=== PATIENT | female | born 1995 | race Caucasian/White ===

== ENCOUNTER 2019-08-24 15:47 | Inpatient (IN) | payer SELFPAY ==
[2019-08-24] MEDS ORDERED: Methylergonovine 0.2 MG/1 ML Amp IM PRN (16:17)
[2019-08-24] MEDS ORDERED: Nalbuphine 10 MG/1 ML Vial IVPUSH PRN (16:17)
[2019-08-24] MEDS ORDERED: Sodium Chloride 0.9% 10 ML SDV IV PRN (16:17)
[2019-08-24] MEDS ORDERED: Butorphanol 1 MG/ML SDV IVPUSH PRN (16:17)
[2019-08-24] MEDS ORDERED: Tranexamic Acid 1,000 MG in Sodium Chloride 0.9% 100 ML IV PRN (16:17)
[2019-08-24] MEDS ORDERED: Sodium Chloride 0.9% 2.5 ML Syringe FLUSH PRN (16:17)
[2019-08-24] MEDS ORDERED: Carboprost Tromethamine 250 MCG/1 ML Amp IM PRN (16:17)
[2019-08-24] MEDS ORDERED: Lidocaine 1% 50 ML MDV INJECT PRN (16:17)
[2019-08-24] MEDS ORDERED: Sodium Chloride 0.9% 10 ML Syringe FLUSH PRN (16:17)
[2019-08-24] MEDS ORDERED: Water For Irrigation,Sterile 1,000 ML Container IRR PRN (16:17)
[2019-08-24] MEDS ORDERED: Misoprostol 200 MCG Tab PO PRN (16:17)
[2019-08-24] MEDS ORDERED: Terbutaline 1 MG/ML SDV SUBCUT PRN (16:19)
[2019-08-24] MEDS ORDERED: Misoprostol 25 MCG (1/4 of 100 MCG) Tab VAG PRN ×2 (16:19)
[2019-08-24] MEDS ORDERED: Oxytocin/0.9 % Sodium Chloride 30 UNIT/500 ML BAG IV SCH ×2 (16:30)
[2019-08-24] MEDS ORDERED: Oxytocin/0.9 % Sodium Chloride 30 UNIT/500 ML BAG ONE (17:29)
[2019-08-24] MEDS: Lactated Ringers 1,000 ML IV SCH ×2 (17:37→21:49)
[2019-08-24] MEDS ORDERED: Bupivicaine/fentaNYL/NS 250 ML ONE (21:07)
--- NOTE | 2019-08-24 21:31 | PCM.PREANE ---
Preanesthetic Assessment - Anesthesia/Transfusion/Family Hx Anesthesia History: No Prior Anesthesia Family History of Anesthesia Reaction: No Transfusion History: No Prior Transfusion(s) - Review of Systems General: No Symptoms Pulmonary: No Symptoms Cardiovascular: No Symptoms Gastrointestinal: No Symptoms Neurological: No Symptoms Other: Reports: None - Physical Assessment NPO Status Date: 08/24/19 NPO Status Time: 18:00 (tator tots) Height: 5 ft 5 in Weight: 83.915 kg ASA Class: 2 Mental Status: Alert & Oriented x3 Airway Class: Mallampati = 2 Dentition: Reports: Normal Dentition Thyro-Mental Finger Breadths: 3 ROM/Head Extension: Full Lungs: Clear to Auscultation, Normal Respiratory Effort - Lab Values: Laboratory Last Values WBC 11.27 K/uL (4.0-11.0) H 08/24/19 16:39 RBC 4.34 M/uL (4.30-5.90) 08/24/19 16:39 Hgb 12.0 g/dL (12.0-16.0) 08/24/19 16:39 Hct 37.1 % (36.0-46.0) 08/24/19 16:39 MCV 85.5 fL (80.0-98.0) 08/24/19 16:39 MCH 27.6 pg (27.0-32.0) 08/24/19 16:39 MCHC 32.3 g/dL (31.0-37.0) 08/24/19 16:39 RDW Std Deviation 45.7 fl (28.0-62.0) 08/24/19 16:39 RDW Coeff of Kenny 15 % (11.0-15.0) 08/24/19 16:39 Plt Count 254 K/uL (150-400) 08/24/19 16:39 MPV 13.30 fL (7.40-12.00) H 08/24/19 16:39 Nucleated RBC % 0.0 /100WBC 08/24/19 16:39 Nucleated RBCs # 0 K/uL 08/24/19 16:39 Membrane Rupture POSITIVE 08/24/19 15:40 Blood Type O POSITIVE 08/24/19 16:39 Antibody Screen NEGATIVE 08/24/19 16:39 - Allergies Allergies/Adverse Reactions: Allergies Allergy/AdvReac Type Severity Reaction Status Date / Time No Known Allergies Allergy Verified 08/24/19 15:46 - Acknowledgements Anesthesia Type Planned: Epidural Pt an Appropriate Candidate for the Planned Anesthesia: Yes Alternatives and Risks of Anesthesia Discussed w Pt/Guardian: Yes Pt/Guardian Understands and Agrees with Anesthesia Plan: Yes Additional Comments: at 40 1/7 weeks. Admitted in active labor with SROM. Dilated to 3 cm. PreAnesthesia Questionnaire - Past Health History Medical/Surgical History: Denies Medical/Surgical History [employer] History: Reports: - SUBSTANCE USE Smoking Status *Q: Never Smoker Tobacco Use Within Last Twelve Months: Cigarettes Second Hand Smoke Exposure: No Recreational Drug Use History: No - CURRENT (IN HOUSE) MEDS Current Meds: Current Medications Butorphanol Tartrate (Stadol) 1 mg IVPUSH Q1H PRN PRN Reason: Pain Carboprost Tromethamine (Hemabate Ds) 250 mcg IM ASDIRECTED PRN PRN Reason: Post Hemorrhage Lactated Ringer's (Ringers, Lactated) 1,000 mls @ 150 mls/hr IV ASDIRECTED MORENO Last Admin: 08/24/19 17:37 Dose: 150 mls/hr Oxytocin/Sodium Chloride (Oxytocin 30 Unit/500 Ml-Ns) 30 unit in 500 mls @ 500 mls/hr IV TITRATE [facility] Tranexamic Acid 1,000 mg/ (Sodium Chloride) 110 mls @ 660 mls/hr IV ONETIME PRN PRN Reason: Bleeding Oxytocin/Sodium Chloride (Oxytocin 30 Unit/500 Ml-Ns) 30 unit in 500 mls @ 2 mls/hr IV TITRATE MORENO; Protocol Last Titration: 08/24/19 20:26 Dose: 12 munits/min, 12 mls/hr Lidocaine HCl (Xylocaine 1%) 50 ml INJECT ONETIME PRN PRN Reason: Laceration repair Methylergonovine Maleate (Methergine) 0.2 mg IM ASDIRECTED PRN PRN Reason: Post Hemorrhage Misoprostol (Cytotec) 200 mcg PO ONETIME PRN PRN Reason: Post Hemorrhage Misoprostol (Cytotec) 25 mcg VAG ONETIME PRN PRN Reason: Cervical Ripening Misoprostol (Cytotec) 25 mcg VAG Q4H PRN PRN Reason: Cervical Ripening Nalbuphine HCl (Nubain) 10 mg IVPUSH Q1H PRN PRN Reason: Pain (severe 7-10) Sodium Chloride (Saline Flush) 10 ml FLUSH ASDIRECTED PRN PRN Reason: Keep Vein Open Sodium Chloride (Saline Flush) 2.5 ml FLUSH ASDIRECTED PRN PRN Reason: Keep Vein Open Sodium Chloride (Normal Saline) 10 ml IV ASDIRECTED PRN PRN Reason: IV Use Sterile Water (Sterile Water For Irrigation) 1,000 ml IRR ASDIRECTED PRN PRN Reason: delivery Terbutaline Sulfate (Brethine) 0.25 mg SUBCUT ASDIRECTED PRN PRN Reason: Tacysystole Discontinued Medications Oxytocin/Sodium Chloride (Oxytocin 30 Unit/500 Ml-Ns) Confirm Administered Dose 30 unit in 500 mls @ as directed .ROUTE .STiSSimple-MED ONE Stop: 08/24/19 17:30 Fentanyl/Bupivacaine HCl (Fentanyl/Bupivacaine/Ns 2 Mcg-0.125% 250 Ml) Confirm Administered Dose 250 mls @ as directed .ROUTE .STiSSimple-MED ONE Stop: 08/24/19 21:08
[2019-08-25] MEDS ORDERED: Benzocaine/Menthol 20%-0.5% Spray 78 GM Cannister TOP PRN (00:34)
[2019-08-25] MEDS ORDERED: Acetaminophen 500 MG Tab PO PRN ×2 (00:34)
[2019-08-25] MEDS ORDERED: Docusate Sodium 100 MG Cap PO PRN (00:34)
[2019-08-25] MEDS ORDERED: Ibuprofen 400 MG Tab PO PRN (00:34)
[2019-08-25] MEDS ORDERED: Lanolin 100% Cream 7 GM Tube TOP PRN (00:34)
[2019-08-25] MEDS ORDERED: Witch Hazel Medicated Pads 40/Jar TOP PRN (00:34)
[2019-08-25] MEDS ORDERED: Bisacodyl 10 MG Supp RECTAL PRN (00:34)
[2019-08-25] MEDS ORDERED: oxyCODONE 5 MG Tab PO PRN (00:34)
[2019-08-25] MEDS ORDERED: Ampicillin/Sulbactam Na 3 GM in Sodium Chloride 0.9% 100 ML IV ONE (00:42)
--- NOTE | 2019-08-25 00:42 | PCM.DEL ---
L & D Note - General Info Date of Service: 08/25/19 Mother's Due Date: 08/23/19 - Delivery Note Labor: Augmented by Oxytocin Delivery Outcome: Livebirth Infant Delivery Method: Spontaneous Vaginal Delivery-Single Presentation: Left Occiput Anterior (MEGHA) Nuchal Cord: None Anesthesia Type: Epidural Episiotomy Type: None Laceration: Labial Placenta: Intact Cord: 3 Vessels Estimated Blood Loss: 300 Resuscitation Needed: No Score 1 min: 8 Score 5 min: 9 Delivery Comments (Free Text/Narrative):: Live female delivered at 1155pm , 8/9 weight 2840g - General Info Date of Service: 08/25/19 - Patient Data Weight - Most Recent: 83.915 kg Lab Results Last 24 Hours: Laboratory Results - last 24 hr 08/24/19 08/24/19 08/24/19 Range/Units 15:40 16:39 16:39 WBC 11.27 H (4.0-11.0) K/uL RBC 4.34 (4.30-5.90) M/uL Hgb 12.0 (12.0-16.0) g/dL Hct 37.1 (36.0-46.0) % MCV 85.5 (80.0-98.0) fL MCH 27.6 (27.0-32.0) pg MCHC 32.3 (31.0-37.0) g/dL RDW Std Deviation 45.7 (28.0-62.0) fl RDW Coeff of Kenny 15 (11.0-15.0) % Plt Count 254 (150-400) K/uL MPV 13.30 H (7.40-12.00) fL Nucleated RBC % 0.0 /100WBC Nucleated RBCs # 0 K/uL Membrane Rupture POSITIVE Blood Type O POSITIVE Antibody Screen NEGATIVE Med Orders - Current: Current Medications Acetaminophen (Tylenol Extra Strength) 500 mg PO Q4H PRN PRN Reason: Pain Acetaminophen (Tylenol Extra Strength) 1,000 mg PO Q4H PRN PRN Reason: Pain Benzocaine/Menthol (Dermoplast Pain Relief 20%-0.5% [place]) 78 gm TOP ASDIRECTED PRN PRN Reason: Perineal Comfort Measure Bisacodyl (Dulcolax) 10 mg RECTAL ONETIME PRN PRN Reason: Constipation Butorphanol Tartrate (Stadol) 1 mg IVPUSH Q1H PRN PRN Reason: Pain Carboprost Tromethamine (Hemabate Ds) 250 mcg IM ASDIRECTED PRN PRN Reason: Post Hemorrhage Docusate Sodium (Colace) 100 mg PO BID PRN PRN Reason: Constipation Emollient Ointment (Lansinoh Hpa) 0 gm TOP ASDIRECTED PRN PRN Reason: Sore Nipples Lactated Ringer's (Ringers, Lactated) 1,000 mls @ 150 mls/hr IV ASDIRECTED MORENO Last Admin: 08/24/19 21:49 Dose: 150 mls/hr Oxytocin/Sodium Chloride (Oxytocin 30 Unit/500 Ml-Ns) 30 unit in 500 mls @ 500 mls/hr IV TITRATE [facility] Tranexamic Acid 1,000 mg/ (Sodium Chloride) 110 mls @ 660 mls/hr IV ONETIME PRN PRN Reason: Bleeding Oxytocin/Sodium Chloride (Oxytocin 30 Unit/500 Ml-Ns) 30 unit in 500 mls @ 2 mls/hr IV TITRATE [facility]; Protocol Last Titration: 08/24/19 23:05 Dose: 6 munits/min, 6 mls/hr Ibuprofen (Motrin) 400 mg PO Q4H PRN PRN Reason: Pain Ibuprofen (Motrin) 800 mg PO Q6H PRN PRN Reason: Pain Lidocaine HCl (Xylocaine 1%) 50 ml INJECT ONETIME PRN PRN Reason: Laceration repair Methylergonovine Maleate (Methergine) 0.2 mg IM ASDIRECTED PRN PRN Reason: Post Hemorrhage Misoprostol (Cytotec) 200 mcg PO ONETIME PRN PRN Reason: Post Hemorrhage Misoprostol (Cytotec) 25 mcg VAG ONETIME PRN PRN Reason: Cervical Ripening Misoprostol (Cytotec) 25 mcg VAG Q4H PRN PRN Reason: Cervical Ripening Nalbuphine HCl (Nubain) 10 mg IVPUSH Q1H PRN PRN Reason: Pain (severe 7-10) Oxycodone HCl (Oxycodone) 5 mg PO Q2H PRN PRN Reason: Pain Sodium Chloride (Saline Flush) 10 ml FLUSH ASDIRECTED PRN PRN Reason: Keep Vein Open Sodium Chloride (Saline Flush) 2.5 ml FLUSH ASDIRECTED PRN PRN Reason: Keep Vein Open Sodium Chloride (Normal Saline) 10 ml IV ASDIRECTED PRN PRN Reason: IV Use Sterile Water (Sterile Water For Irrigation) 1,000 ml IRR ASDIRECTED PRN PRN Reason: delivery Terbutaline Sulfate (Brethine) 0.25 mg SUBCUT ASDIRECTED PRN PRN Reason: Tacysystole Witch Capri (Tucks) 1 pad TOP ASDIRECTED PRN PRN Reason: comfort care Discontinued Medications Oxytocin/Sodium Chloride (Oxytocin 30 Unit/500 Ml-Ns) Confirm Administered Dose 30 unit in 500 mls @ as directed .ROUTE .STK-MED ONE Stop: 08/24/19 17:30 Fentanyl/Bupivacaine HCl (Fentanyl/Bupivacaine/Ns 2 Mcg-0.125% 250 Ml) Confirm Administered Dose 250 mls @ as directed .ROUTE .STDineroMail-MED ONE Stop: 08/24/19 21:08 - Problem List & Annotations (1) Vaginal delivery SNOMED Code(s): 909397564 Code(s): O80 - ENCOUNTER FOR FULL-TERM UNCOMPLICATED DELIVERY Status: Acute Current Visit: Yes - Problem List Review Problem List Initiated/Reviewed/Updated: Yes - My Orders Last 24 Hours: My Active Orders 08/24/19 15:10 Patient Status [ADT] Routine 08/24/19 15:47 Non Stress Test [RC] PER UNIT ROUTINE Up ad Isa [RC] ASDIRECTED Vaginal Exam [RC] Click to Edit Vital Signs [RC] PER UNIT ROUTINE Resuscitation Status Routine 08/24/19 16:17 Heart Tones [RC] CONTINUOUS Notify Provider [RC] PRN Vaginal Exam [RC] PRN Butorphanol [Stadol] 1 mg IVPUSH Q1H PRN Carboprost Tromethamine [Hemabate DS] 250 mcg IM ASDIRECTED PRN Lidocaine 1% [Xylocaine 1%] 50 ml INJECT ONETIME PRN Methylergonovine [Methergine] 0.2 mg IM ASDIRECTED PRN Nalbuphine [Nubain] 10 mg IVPUSH Q1H PRN Sodium Chloride 0.9% [Normal Saline] 10 ml IV ASDIRECTED PRN Sodium Chloride 0.9% [Saline Flush] 10 ml FLUSH ASDIRECTED PRN Sodium Chloride 0.9% [Saline Flush] 2.5 ml FLUSH ASDIRECTED PRN Tranexamic Acid [Cyklokapron] 1,000 mg Sodium Chloride 0.9% [Normal Saline] 100 ml IV ONETIME Water For Irrigation,Sterile [Sterile Water for Irrigation] 1,000 ml IRR ASDIRECTED PRN miSOPROStoL [Cytotec] 200 mcg PO ONETIME PRN Peripheral IV Insertion Adult [OM.PC] Routine 08/24/19 16:19 Bedrest Bathroom Privileges [RC] ASDIRECTED Communication Order [RC] ASDIRECTED Communication Order [RC] ASDIRECTED Communication Order [RC] ASDIRECTED Notify Provider [RC] PRN Notify Provider [RC] PRN Notify Provider [RC] STAT Oxygen Therapy [RC] ASDIRECTED Vaginal Exam [RC] PRN Terbutaline [Brethine] 0.25 mg SUBCUT ASDIRECTED PRN miSOPROStoL [Cytotec] 25 mcg VAG ONETIME PRN miSOPROStoL [Cytotec] 25 mcg VAG Q4H PRN 08/24/19 16:30 Lactated Ringers [Ringers, Lactated] 1,000 ml IV ASDIRECTED Oxytocin/0.9 % Sodium Chloride [Oxytocin 30 Unit/500 ML-NS] 30 unit in 500 ml IV TITRATE Oxytocin/0.9 % Sodium Chloride [Oxytocin 30 Unit/500 ML-NS] 30 unit in 500 ml IV TITRATE Medication Administration Instruction [OM.PC] Q3H 08/24/19 16:39 RPR (SYPHILIS SERO) W/ RFLX [REF] Routine 08/25/19 00:34 Patient Status [ADT] Routine May Shower [RC] ASDIRECTED Up ad Isa [RC] ASDIRECTED Vital Signs [RC] PER UNIT ROUTINE Acetaminophen [Tylenol Extra Strength] 1,000 mg PO Q4H PRN Acetaminophen [Tylenol Extra Strength] 500 mg PO Q4H PRN Benzocaine/Menthol [Dermoplast Pain Relief 20%-0.5% Fabens] 78 gm TOP ASDIRECTED PRN Docusate Sodium [Colace] 100 mg PO BID PRN Ibuprofen [Motrin] 400 mg PO Q4H PRN Ibuprofen [Motrin] 800 mg PO Q6H PRN Lanolin [Lansinoh HPA] See Dose Instructions TOP ASDIRECTED PRN Witch Capri [Tucks] 1 pad TOP ASDIRECTED PRN bisacodyL [Dulcolax] 10 mg RECTAL ONETIME PRN oxyCODONE 5 mg PO Q2H PRN Assess Lochia [WOMSER] Per Unit Routine Assess Uterine Involution [WOMSER] Per Unit Routine Peripheral IV Discontinue [OM.PC] Routine 08/26/19 05:11 HEMOGLOBIN/HEMATOCRIT,HH [HEME] Timed
--- NOTE | 2019-08-25 02:40 | OR ---
SURGEON: SHEEBA BEVERLY DATE OF PROCEDURE:08/24/2019 PREOPERATIVE DIAGNOSES: A 24-year-old G2, P1-0-0-1, at 40 weeks 1 day with prelabor rupture of membranes. POSTOPERATIVE DIAGNOSES: A 24-year-old G2, P1-0-0-1, at 40 weeks 1 day with prelabor rupture of membranes. PROCEDURE: Normal spontaneous vaginal delivery. ESTIMATED BLOOD LOSS: 200. INTRAVENOUS FLUID: Pitocin running. ANESTHESIA: Epidural. NOTES AND FINDING: A live female delivered at 11:55 p.m. scores are 8 and 9. Weight is 2840 g. BRIEF HISTORY ABOUT THE PATIENT: She is a 24-year-old G2, P1-0-0-1, at 40 weeks 1 day, who came in complaining of rupture of membranes. AmniSure done was positive. The patient had care at [facility], last visit was in May . GBS was unknown.When she came in. She was noted to be about 3 to 4 cm dilated. She was started on Pitocin. The patient made rapid progress and became fully dilated. PROCEDURE IN DETAIL: With the patient becoming fully dilated, she was encouraged to push. She had good pushing effort. She delivered the head. Subsequently, by the anterior and posterior shoulder, the body of the infant was delivered. The infant was placed on the maternal abdomen. Delayed cord clamping was done. Cord blood gases were obtained. The placenta was delivered via controlled cord traction. The perineum was inspected. A very small bilateral labial abrasion was noted, which was hemostatic. The uterus was massaged. The cervix was noted to be intact. All instrument and pad counts were correct x2. The patient tolerated the procedure well and was left in the Labor and Delivery suite in stable condition. JUNIOR / KESHA /[id number] MTDD
--- NOTE | 2019-08-25 05:07 | PCM.POSTAN ---
POST ANESTHESIA ASSESSMENT - MENTAL STATUS Mental Status: Alert, Oriented - VITAL SIGNS Vital Signs: Last Vital Signs Temp 36.4 C 08/25/19 04:00 Pulse 59 L 08/25/19 04:00 Resp 14 08/25/19 04:00 BP 93/56 L 08/25/19 04:00 Pulse Ox 98 08/25/19 04:00 - RESPIRATORY Respiratory Status: Respiratory Rate WNL, Airway Patent, O2 Saturation Stable - CARDIOVASCULAR CV Status: Pulse Rate WNL, Blood Pressure Stable - GASTROINTESTINAL GI Status: No Symptoms - POST OP HYDRATION Hydration Status: Adequate & Stable
[2019-08-25] MEDS: Ibuprofen 800 MG Tab PO PRN ×2 (06:41→14:35)
--- NOTE | 2019-08-25 08:15 | PCM.PNPP ---
- General Info Date of Service: 08/25/19 Subjective Update: 24 P2 s/p PPD1 , patient denies ay complains She is ambulating voiding and tolerating regular diet Normal lochia Functional Status: Reports: Pain Controlled, Tolerating Diet, Ambulating, Urinating - Review of Systems General: Reports: No Symptoms HEENT: Reports: No Symptoms Pulmonary: Reports: No Symptoms Cardiovascular: Reports: No Symptoms Gastrointestinal: Reports: No Symptoms Genitourinary: Reports: No Symptoms Musculoskeletal: Reports: No Symptoms Skin: Reports: No Symptoms Neurological: Reports: No Symptoms Psychiatric: Reports: No Symptoms - General Info Date of Service: 08/25/19 - Patient Data Vital Signs - Most Recent: Last Vital Signs Temp 36.4 C 08/25/19 04:00 Pulse 59 L 08/25/19 04:00 Resp 14 08/25/19 04:00 BP 93/56 L 08/25/19 04:00 Pulse Ox 98 08/25/19 04:00 Weight - Most Recent: 83.915 kg Lab Results - Last 24 Hours: Laboratory Results - last 24 hr 08/24/19 08/24/19 08/24/19 Range/Units 15:40 16:39 16:39 WBC 11.27 H (4.0-11.0) K/uL RBC 4.34 (4.30-5.90) M/uL Hgb 12.0 (12.0-16.0) g/dL Hct 37.1 (36.0-46.0) % MCV 85.5 (80.0-98.0) fL MCH 27.6 (27.0-32.0) pg MCHC 32.3 (31.0-37.0) g/dL RDW Std Deviation 45.7 (28.0-62.0) fl RDW Coeff of Kenny 15 (11.0-15.0) % Plt Count 254 (150-400) K/uL MPV 13.30 H (7.40-12.00) fL Nucleated RBC % 0.0 /100WBC Nucleated RBCs # 0 K/uL Membrane Rupture POSITIVE Blood Type O POSITIVE Antibody Screen NEGATIVE Med Orders - Current: Current Medications Acetaminophen (Tylenol Extra Strength) 500 mg PO Q4H PRN PRN Reason: Pain Acetaminophen (Tylenol Extra Strength) 1,000 mg PO Q4H PRN PRN Reason: Pain Benzocaine/Menthol (Dermoplast Pain Relief 20%-0.5% [place]) 78 gm TOP ASDIRECTED PRN PRN Reason: Perineal Comfort Measure Bisacodyl (Dulcolax) 10 mg RECTAL ONETIME PRN PRN Reason: Constipation Butorphanol Tartrate (Stadol) 1 mg IVPUSH Q1H PRN PRN Reason: Pain Carboprost Tromethamine (Hemabate Ds) 250 mcg IM ASDIRECTED PRN PRN Reason: Post Hemorrhage Docusate Sodium (Colace) 100 mg PO BID PRN PRN Reason: Constipation Emollient Ointment (Lansinoh Hpa) 0 gm TOP ASDIRECTED PRN PRN Reason: Sore Nipples Lactated Ringer's (Ringers, Lactated) 1,000 mls @ 150 mls/hr IV ASDIRECTED MORENO Last Admin: 08/24/19 21:49 Dose: 150 mls/hr Oxytocin/Sodium Chloride (Oxytocin 30 Unit/500 Ml-Ns) 30 unit in 500 mls @ 500 mls/hr IV TITRATE [facility] Tranexamic Acid 1,000 mg/ (Sodium Chloride) 110 mls @ 660 mls/hr IV ONETIME PRN PRN Reason: Bleeding Oxytocin/Sodium Chloride (Oxytocin 30 Unit/500 Ml-Ns) 30 unit in 500 mls @ 2 mls/hr IV TITRATE [facility]; Protocol Last Titration: 08/24/19 23:05 Dose: 6 munits/min, 6 mls/hr Ibuprofen (Motrin) 400 mg PO Q4H PRN PRN Reason: Pain Ibuprofen (Motrin) 800 mg PO Q6H PRN PRN Reason: Pain Last Admin: 08/25/19 06:41 Dose: 800 mg Lidocaine HCl (Xylocaine 1%) 50 ml INJECT ONETIME PRN PRN Reason: Laceration repair Methylergonovine Maleate (Methergine) 0.2 mg IM ASDIRECTED PRN PRN Reason: Post Hemorrhage Misoprostol (Cytotec) 200 mcg PO ONETIME PRN PRN Reason: Post Hemorrhage Misoprostol (Cytotec) 25 mcg VAG ONETIME PRN PRN Reason: Cervical Ripening Misoprostol (Cytotec) 25 mcg VAG Q4H PRN PRN Reason: Cervical Ripening Nalbuphine HCl (Nubain) 10 mg IVPUSH Q1H PRN PRN Reason: Pain (severe 7-10) Oxycodone HCl (Oxycodone) 5 mg PO Q2H PRN PRN Reason: Pain Sodium Chloride (Saline Flush) 10 ml FLUSH ASDIRECTED PRN PRN Reason: Keep Vein Open Sodium Chloride (Saline Flush) 2.5 ml FLUSH ASDIRECTED PRN PRN Reason: Keep Vein Open Sodium Chloride (Normal Saline) 10 ml IV ASDIRECTED PRN PRN Reason: IV Use Sterile Water (Sterile Water For Irrigation) 1,000 ml IRR ASDIRECTED PRN PRN Reason: delivery Last Admin: 08/25/19 01:05 Dose: 1,000 ml Terbutaline Sulfate (Brethine) 0.25 mg SUBCUT ASDIRECTED PRN PRN Reason: Tacysystole Witch Capri (Tucks) 1 pad TOP ASDIRECTED PRN PRN Reason: comfort care Discontinued Medications Oxytocin/Sodium Chloride (Oxytocin 30 Unit/500 Ml-Ns) Confirm Administered Dose 30 unit in 500 mls @ as directed .ROUTE .STK-MED ONE Stop: 08/24/19 17:30 Fentanyl/Bupivacaine HCl (Fentanyl/Bupivacaine/Ns 2 Mcg-0.125% 250 Ml) Confirm Administered Dose 250 mls @ as directed .ROUTE .STK-MED ONE Stop: 08/24/19 21:08 Ampicillin Sodium/Sulbactam (Sodium 3 gm/ Sodium Chloride) 100 mls @ 200 mls/ hr IV ONETIME ONE Stop: 08/25/19 01:11 Last Admin: 08/25/19 01:05 Dose: 200 mls/hr - Interaction Support Person: - Recovery Exam Fundal Tone: Firm Fundal Level: 2 Fingerbreadths Below Umbilicus Fundal Placement: Midline Lochia Amount: Small Lochia Color: Rubra/Red Perineum Description: Intact, Minimal Bruising/Swelling Episiotomy/Laceration: None Bladder Status: Voiding Urinary Elimination: Voided - Exam General: Alert HEENT: Pupils Equal Neck: Supple Lungs: Clear to Auscultation Cardiovascular: Regular Rate, Regular Rhythm GI/Abdominal Exam: Normal Bowel Sounds Extremities: Normal Inspection Neurological: No New Focal Deficit Psy/Mental Status: Alert - Problem List & Annotations (1) Vaginal delivery SNOMED Code(s): 834336534 Code(s): O80 - ENCOUNTER FOR FULL-TERM UNCOMPLICATED DELIVERY Status: Acute Current Visit: Yes - Problem List Review Problem List Initiated/Reviewed/Updated: Yes - My Orders Last 24 Hours: My Active Orders 08/24/19 15:10 Patient Status [ADT] Routine 08/24/19 15:47 Non Stress Test [RC] PER UNIT ROUTINE Up ad Isa [RC] ASDIRECTED Vital Signs [RC] PER UNIT ROUTINE Resuscitation Status Routine 08/24/19 16:17 Butorphanol [Stadol] 1 mg IVPUSH Q1H PRN Carboprost Tromethamine [Hemabate DS] 250 mcg IM ASDIRECTED PRN Lidocaine 1% [Xylocaine 1%] 50 ml INJECT ONETIME PRN Methylergonovine [Methergine] 0.2 mg IM ASDIRECTED PRN Nalbuphine [Nubain] 10 mg IVPUSH Q1H PRN Sodium Chloride 0.9% [Normal Saline] 10 ml IV ASDIRECTED PRN Sodium Chloride 0.9% [Saline Flush] 10 ml FLUSH ASDIRECTED PRN Sodium Chloride 0.9% [Saline Flush] 2.5 ml FLUSH ASDIRECTED PRN Tranexamic Acid [Cyklokapron] 1,000 mg Sodium Chloride 0.9% [Normal Saline] 100 ml IV ONETIME Water For Irrigation,Sterile [Sterile Water for Irrigation] 1,000 ml IRR ASDIRECTED PRN miSOPROStoL [Cytotec] 200 mcg PO ONETIME PRN Peripheral IV Insertion Adult [OM.PC] Routine 08/24/19 16:19 Bedrest Bathroom Privileges [RC] ASDIRECTED Oxygen Therapy [RC] ASDIRECTED Terbutaline [Brethine] 0.25 mg SUBCUT ASDIRECTED PRN miSOPROStoL [Cytotec] 25 mcg VAG ONETIME PRN miSOPROStoL [Cytotec] 25 mcg VAG Q4H PRN 08/24/19 16:30 Lactated Ringers [Ringers, Lactated] 1,000 ml IV ASDIRECTED Oxytocin/0.9 % Sodium Chloride [Oxytocin 30 Unit/500 ML-NS] 30 unit in 500 ml IV TITRATE Oxytocin/0.9 % Sodium Chloride [Oxytocin 30 Unit/500 ML-NS] 30 unit in 500 ml IV TITRATE Medication Administration Instruction [OM.PC] Q3H 08/24/19 16:39 RPR (SYPHILIS SERO) W/ RFLX [REF] Routine 08/25/19 00:34 Patient Status [ADT] Routine May Shower [RC] ASDIRECTED Up ad Isa [RC] ASDIRECTED Vital Signs [RC] PER UNIT ROUTINE Acetaminophen [Tylenol Extra Strength] 1,000 mg PO Q4H PRN Acetaminophen [Tylenol Extra Strength] 500 mg PO Q4H PRN Benzocaine/Menthol [Dermoplast Pain Relief 20%-0.5% [place]] 78 gm TOP ASDIRECTED PRN Docusate Sodium [Colace] 100 mg PO BID PRN Ibuprofen [Motrin] 400 mg PO Q4H PRN Ibuprofen [Motrin] 800 mg PO Q6H PRN Lanolin [Lansinoh HPA] See Dose Instructions TOP ASDIRECTED PRN Witch Capri [Tucks] 1 pad TOP ASDIRECTED PRN bisacodyL [Dulcolax] 10 mg RECTAL ONETIME PRN oxyCODONE 5 mg PO Q2H PRN Assess Lochia [WOMSER] Per Unit Routine Assess Uterine Involution [WOMSER] Per Unit Routine Peripheral IV Discontinue [OM.PC] Routine 08/26/19 05:11 HEMOGLOBIN/HEMATOCRIT,HH [HEME] Timed - Assessment Assessment:: 24 yo P2 PPD1 normal delivery , normal lochia - Plan Plan:: Routine Pain control as needed Discharge home tomorrow
--- NOTE | 2019-08-25 09:09 | PCM48HPAN ---
Post Anesthesia Note - EVALUATION WITHIN 48HRS OF ANESTHETIC Vital Signs in Normal Range: Yes Patient Participated in Evaluation: Yes Respiratory Function Stable: Yes Airway Patent: Yes Cardiovascular Function Stable: Yes Hydration Status Stable: Yes Pain Control Satisfactory: Yes Nausea and Vomiting Control Satisfactory: Yes Mental Status Recovered: Yes Vital Signs: Last Vital Signs Temp 35.8 C 08/25/19 08:00 Pulse 51 L 08/25/19 08:00 Resp 16 08/25/19 08:00 BP 106/56 L 08/25/19 08:00 Pulse Ox 97 08/25/19 08:00
--- NOTE | 2019-08-26 09:53 | PCM.PNPP ---
- General Info Date of Service: 08/26/19 Functional Status: Reports: Pain Controlled, Tolerating Diet, Ambulating, Urinating - Review of Systems General: Denies: Fever, Weakness, Fatigue Pulmonary: Denies: Shortness of Breath Cardiovascular: Denies: Chest Pain, Palpitations, Lightheadedness Gastrointestinal: Denies: Abdominal Pain, Nausea, Vomiting Genitourinary: Reports: No Symptoms Musculoskeletal: Reports: No Symptoms Skin: Reports: No Symptoms Neurological: Reports: No Symptoms Psychiatric: Reports: No Symptoms - General Info Date of Service: 08/26/19 - Patient Data Vital Signs - Most Recent: Last Vital Signs Temp 36.2 C 08/26/19 08:00 Pulse 63 08/26/19 08:00 Resp 15 08/26/19 08:00 BP 113/69 08/26/19 08:00 Pulse Ox 95 08/26/19 08:00 Weight - Most Recent: 83.915 kg Lab Results - Last 24 Hours: Laboratory Results - last 24 hr 08/26/19 Range/Units 05:33 Hgb 10.9 L (12.0-16.0) g/dL Hct 35.0 L (36.0-46.0) % Med Orders - Current: Current Medications Acetaminophen (Tylenol Extra Strength) 500 mg PO Q4H PRN PRN Reason: Pain Acetaminophen (Tylenol Extra Strength) 1,000 mg PO Q4H PRN PRN Reason: Pain Last Admin: 08/25/19 11:10 Dose: 1,000 mg Benzocaine/Menthol (Dermoplast Pain Relief 20%-0.5% [place]) 78 gm TOP ASDIRECTED PRN PRN Reason: Perineal Comfort Measure Bisacodyl (Dulcolax) 10 mg RECTAL ONETIME PRN PRN Reason: Constipation Butorphanol Tartrate (Stadol) 1 mg IVPUSH Q1H PRN PRN Reason: Pain Carboprost Tromethamine (Hemabate Ds) 250 mcg IM ASDIRECTED PRN PRN Reason: Post Hemorrhage Docusate Sodium (Colace) 100 mg PO BID PRN PRN Reason: Constipation Emollient Ointment (Lansinoh Hpa) 0 gm TOP ASDIRECTED PRN PRN Reason: Sore Nipples Lactated Ringer's (Ringers, Lactated) 1,000 mls @ 150 mls/hr IV ASDIRECTED [facility] Last Admin: 08/24/19 21:49 Dose: 150 mls/hr Oxytocin/Sodium Chloride (Oxytocin 30 Unit/500 Ml-Ns) 30 unit in 500 mls @ 500 mls/hr IV TITRATE [facility] Tranexamic Acid 1,000 mg/ (Sodium Chloride) 110 mls @ 660 mls/hr IV ONETIME PRN PRN Reason: Bleeding Oxytocin/Sodium Chloride (Oxytocin 30 Unit/500 Ml-Ns) 30 unit in 500 mls @ 2 mls/hr IV TITRATE [facility]; Protocol Last Titration: 08/24/19 23:05 Dose: 6 munits/min, 6 mls/hr Ibuprofen (Motrin) 400 mg PO Q4H PRN PRN Reason: Pain Ibuprofen (Motrin) 800 mg PO Q6H PRN PRN Reason: Pain Last Admin: 08/25/19 14:35 Dose: 800 mg Lidocaine HCl (Xylocaine 1%) 50 ml INJECT ONETIME PRN PRN Reason: Laceration repair Methylergonovine Maleate (Methergine) 0.2 mg IM ASDIRECTED PRN PRN Reason: Post Hemorrhage Misoprostol (Cytotec) 200 mcg PO ONETIME PRN PRN Reason: Post Hemorrhage Misoprostol (Cytotec) 25 mcg VAG ONETIME PRN PRN Reason: Cervical Ripening Misoprostol (Cytotec) 25 mcg VAG Q4H PRN PRN Reason: Cervical Ripening Nalbuphine HCl (Nubain) 10 mg IVPUSH Q1H PRN PRN Reason: Pain (severe 7-10) Oxycodone HCl (Oxycodone) 5 mg PO Q2H PRN PRN Reason: Pain Sodium Chloride (Saline Flush) 10 ml FLUSH ASDIRECTED PRN PRN Reason: Keep Vein Open Sodium Chloride (Saline Flush) 2.5 ml FLUSH ASDIRECTED PRN PRN Reason: Keep Vein Open Sodium Chloride (Normal Saline) 10 ml IV ASDIRECTED PRN PRN Reason: IV Use Sterile Water (Sterile Water For Irrigation) 1,000 ml IRR ASDIRECTED PRN PRN Reason: delivery Last Admin: 08/25/19 01:05 Dose: 1,000 ml Terbutaline Sulfate (Brethine) 0.25 mg SUBCUT ASDIRECTED PRN PRN Reason: Tacysystole Witeliezer Farooq (Tucks) 1 pad TOP ASDIRECTED PRN PRN Reason: comfort care Discontinued Medications Oxytocin/Sodium Chloride (Oxytocin 30 Unit/500 Ml-Ns) Confirm Administered Dose 30 unit in 500 mls @ as directed .ROUTE .STK-MED ONE Stop: 08/24/19 17:30 Fentanyl/Bupivacaine HCl (Fentanyl/Bupivacaine/Ns 2 Mcg-0.125% 250 Ml) Confirm Administered Dose 250 mls @ as directed .ROUTE .STK-MED ONE Stop: 08/24/19 21:08 Ampicillin Sodium/Sulbactam (Sodium 3 gm/ Sodium Chloride) 100 mls @ 200 mls/ hr IV ONETIME ONE Stop: 08/25/19 01:11 Last Admin: 08/25/19 01:05 Dose: 200 mls/hr - Infant Interaction Support Person: - Recovery Exam Fundal Tone: Firm Fundal Level: 1 Fingerbreadths Below Umbilicus Fundal Placement: Midline Lochia Amount: Scant Lochia Color: Rubra/Red Perineum Description: Intact, Minimal Bruising/Swelling Episiotomy/Laceration: None Bladder Status: Voiding Urinary Elimination: Voided - Exam General: Alert, Oriented Neck: Supple Lungs: Normal Respiratory Effort Cardiovascular: Regular Rate, Regular Rhythm GI/Abdominal Exam: Soft, Non-Tender Extremities: Pedal Edema (trace). No: Clinton's Sign Skin: Warm, Dry, Intact Neurological: No New Focal Deficit Psy/Mental Status: Alert, Normal Affect, Normal Mood - Problem List Review Problem List Initiated/Reviewed/Updated: Yes - My Orders Last 24 Hours: My Active Orders 08/26/19 09:50 Ready for Discharge [RC] PER UNIT ROUTINE - Assessment Assessment:: 24 yo P2 PPD2 s/p - Plan Plan:: Doing well overall, would like to go home today. Discharge instructions reviewed. Follow up at [facility] 6 weeks. Discharge to home.
== END 2019-08-26 20:21 | disposition home or self-care (01) | DRG 807 ==
LOC: MW.OB 15:47 → MW.OBCHECK 15:47 → MW.OB 16:00 → MW.OBCHECK 23:55 → OBSVTOIN 08-25 00:34 → MW.OB 08-25 03:46
PROVIDERS: ADMIT Obstetrics & Gynecology; ATTEND Obstetrics & Gynecology
PROC: 10E0XZZ Delivery of Products of Conception, External Approach (ICD-10-PCS; principal; 2019-08-25)
PROC: 3E0R3BZ Introduction of Anesthetic Agent into Spinal Canal, Percutaneous Approach (ICD-10-PCS; 2019-08-25)
DX: O48.0 Post-term pregnancy (principal); Z37.0 Single live birth; Z3A.40 40 weeks gestation of pregnancy
CPT/HCPCS: 01967; 36415; 59025; 59409; 84112; 85014; 85018; 85027; 86592; 86850; 86900; 86901; A9270-GY; J0295; J2590; J7050; J7120

== ENCOUNTER 2021-02-04 10:25 | Inpatient (IN) | payer MEDICAID ==
[2021-02-04] MEDS ORDERED: Nalbuphine 10 MG/1 ML Vial IVPUSH PRN (10:51)
[2021-02-04] MEDS ORDERED: Sodium Chloride 0.9% 10 ML Syringe FLUSH PRN (10:51)
[2021-02-04] MEDS ORDERED: Water For Irrigation,Sterile 1,000 ML Container IRR PRN (10:51)
[2021-02-04] MEDS ORDERED: Methylergonovine 0.2 MG/1 ML Amp IM PRN (10:51)
[2021-02-04] MEDS ORDERED: Misoprostol 25 MCG (1/4 of 100 MCG) Tab VAG PRN ×2 (10:51)
[2021-02-04] MEDS ORDERED: Ondansetron 4 MG/2 ML SDV IVPUSH PRN (10:51)
[2021-02-04] MEDS ORDERED: Butorphanol 1 MG/ML SDV IVPUSH PRN (10:51)
[2021-02-04] MEDS ORDERED: Misoprostol 200 MCG Tab PO PRN (10:51)
[2021-02-04] MEDS ORDERED: Sodium Chloride 0.9% 2.5 ML Syringe FLUSH PRN (10:51)
[2021-02-04] MEDS ORDERED: Carboprost Tromethamine 250 MCG/1 ML Amp IM PRN (10:51)
[2021-02-04] MEDS ORDERED: Lidocaine 1% 50 ML MDV INJECT PRN (10:51)
[2021-02-04] MEDS ORDERED: Sodium Chloride 0.9% 10 ML SDV IV PRN (10:51)
[2021-02-04] MEDS ORDERED: Tranexamic Acid 1,000 MG in Sodium Chloride 0.9% 100 ML IV PRN (10:51)
[2021-02-04] MEDS ORDERED: Terbutaline 1 MG/ML SDV SUBCUT PRN (10:51)
[2021-02-04] MEDS ORDERED: Ampicillin 2 GM in Sodium Chloride 0.9% 100 ML IV ONE (10:57)
[2021-02-04] MEDS ORDERED: Lactated Ringers 1,000 ML IV SCH (11:00)
[2021-02-04] MEDS ORDERED: Oxytocin/0.9 % Sodium Chloride 30 UNIT/500 ML BAG IV SCH ×2 (11:00)
[2021-02-04] MEDS ORDERED: Bupivacaine 0.25% 10 ML SDV ONE (11:31)
[2021-02-04] MEDS ORDERED: Ropivacaine HCl/PF 200 ML ONE (11:31)
--- NOTE | 2021-02-04 11:58 | PCM.PREANE ---
Preanesthetic Assessment - Anesthesia/Transfusion/Family Hx Anesthesia History: No Prior Anesthesia Family History of Anesthesia Reaction: No Transfusion History: No Prior Transfusion(s) - Review of Systems General: No Symptoms Pulmonary: No Symptoms Cardiovascular: No Symptoms Gastrointestinal: No Symptoms Neurological: No Symptoms Other: Reports: None - Physical Assessment Height: 5 ft 5 in Weight: 177 lb ASA Class: 2 Mental Status: Alert & Oriented x3 Airway Class: Mallampati = 3 Dentition: Reports: Normal Dentition ROM/Head Extension: Full Lungs: Clear to Auscultation, Normal Respiratory Effort Cardiovascular: Regular Rate, Regular Rhythm - Lab Values: Laboratory Last Values WBC 13.21 K/uL (4.0-11.0) H 02/04/21 10:25 RBC 3.92 M/uL (4.30-5.90) L 02/04/21 10:25 Hgb 11.2 g/dL (12.0-16.0) L 02/04/21 10:25 Hct 33.8 % (36.0-46.0) L 02/04/21 10:25 MCV 86.2 fL (80.0-98.0) 02/04/21 10:25 MCH 28.6 pg (27.0-32.0) 02/04/21 10:25 MCHC 33.1 g/dL (31.0-37.0) 02/04/21 10:25 RDW Std Deviation 47.0 fl (28.0-62.0) 02/04/21 10:25 RDW Coeff of Kenny 15 % (11.0-15.0) 02/04/21 10:25 Plt Count 258 K/uL (150-400) 02/04/21 10:25 MPV 13.00 fL (7.40-12.00) H 02/04/21 10:25 Nucleated RBC % 0.0 /100WBC 02/04/21 10:25 Nucleated RBCs # 0 K/uL 02/04/21 10:25 SARS-CoV-2 RNA (LIBBY) NEGATIVE (NEGATIVE) 02/04/21 10:25 Blood Type O POSITIVE 02/04/21 10:25 Antibody Screen NEGATIVE 02/04/21 10:25 - Allergies Allergies/Adverse Reactions: Allergies Allergy/AdvReac Type Severity Reaction Status Date / Time No Known Allergies Allergy Verified 02/04/21 10:50 - Blood Blood Available: Yes Product(s) Available: PRBC - Anesthesia Plan Pre-Op Medication Ordered: None - Acknowledgements Anesthesia Type Planned: Epidural Pt an Appropriate Candidate for the Planned Anesthesia: Yes Alternatives and Risks of Anesthesia Discussed w Pt/Guardian: Yes Pt/Guardian Understands and Agrees with Anesthesia Plan: Yes PreAnesthesia Questionnaire - Past Health History Medical/Surgical History: Denies 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: - HOME MEDS Home Medications: Home Meds Ferrous Sulfate [Iron] 325 mg PO DAILY 01/12/21 [History] Pnv No.95/Ferrous Fum/Folic AC [ Vitamin Tablet] 1 each PO DAILY 01/12/21 [History] - CURRENT (IN HOUSE) MEDS Current Meds: Current Medications Butorphanol Tartrate (Butorphanol 1 Mg/Ml Sdv) 1 mg IVPUSH Q1H PRN PRN Reason: Pain (severe 7-10) Carboprost Tromethamine (Carboprost Tromethamine 250 Mcg/1 Ml Amp) 250 mcg IM ASDIRECTED PRN PRN Reason: Post Hemorrhage Oxytocin/Sodium Chloride (Oxytocin 30 Unit/500 Ml-Ns) 30 unit in 500 mls @ 2 mls/hr IV TITRATE [facility]; Protocol Lactated Ringer's (Ringers, Lactated) 1,000 mls @ 150 mls/hr IV ASDIRECTED [facility] Last Admin: 02/04/21 11:20 Dose: 150 mls/hr Documented by: Oxytocin/Sodium Chloride (Oxytocin 30 Unit/500 Ml-Ns) 30 unit in 500 mls @ 999 mls/hr IV TITRATE [facility] Tranexamic Acid 1,000 mg/ (Sodium Chloride) 110 mls @ 660 mls/hr IV ONETIME PRN PRN Reason: Bleeding Lidocaine HCl (Lidocaine 1% 50 Ml Mdv) 50 ml INJECT ONETIME PRN PRN Reason: Laceration repair Methylergonovine Maleate (Methylergonovine 0.2 Mg/1 Ml Amp) 0.2 mg IM ASDIRECTED PRN PRN Reason: Post Hemorrhage Misoprostol (Misoprostol 25 Mcg (1/4 Of 100 Mcg) Tab) 25 mcg VAG ONETIME PRN PRN Reason: Cervical Ripening Misoprostol (Misoprostol 25 Mcg (1/4 Of 100 Mcg) Tab) 25 mcg VAG Q4H PRN PRN Reason: Cervical Ripening Misoprostol (Misoprostol 200 Mcg Tab) 200 mcg PO ONETIME PRN PRN Reason: Post Hemorrhage Nalbuphine HCl (Nalbuphine 10 Mg/1 Ml Vial) 10 mg IVPUSH Q1H PRN PRN Reason: Pain (severe 7-10) Ondansetron HCl (Ondansetron 4 Mg/2 Ml Sdv) 4 mg IVPUSH Q4H PRN PRN Reason: Nausea/Vomiting Sodium Chloride (Sodium Chloride 0.9% 10 Ml Syringe) 10 ml FLUSH ASDIRECTED PRN PRN Reason: Keep Vein Open Sodium Chloride (Sodium Chloride 0.9% 2.5 Ml Syringe) 2.5 ml FLUSH ASDIRECTED PRN PRN Reason: Keep Vein Open Sodium Chloride (Sodium Chloride 0.9% 10 Ml Sdv) 10 ml IV ASDIRECTED PRN PRN Reason: IV Use Sterile Water (Water For Irrigation,Sterile 1,000 Ml Container) 1,000 ml IRR ASDIRECTED PRN PRN Reason: delivery Terbutaline Sulfate (Terbutaline 1 Mg/Ml Sdv) 0.25 mg SUBCUT ASDIRECTED PRN PRN Reason: Tacysystole Discontinued Medications Bupivacaine HCl (Bupivacaine 0.25% 10 Ml Sdv) Confirm Administered Dose 10 ml .ROUTE .STK-MED ONE Stop: 02/04/21 11:32 Ampicillin Sodium 2 gm/ Sodium (Chloride) 100 mls @ 200 mls/hr IV ONETIME ONE Stop: 02/04/21 11:26 Last Admin: 02/04/21 11:38 Dose: 200 mls/hr Documented by: Ropivacaine (Naropin 0.2%) Confirm Administered Dose 200 mls @ as directed .ROUTE .STK-MED ONE Stop: 02/04/21 11:32 - Pre-Procedure Checklist Attending Provider Aware: Yes Chart Reviewed: Yes Consent Signed: Yes Labs Reviewed: Yes VS/FHR Reviewed: Yes Patient Identification Confirmation Method: Reports: Verbal Patient Pt an Appropriate Candidate for the Planned Anesthesia: Yes Alternatives and Risks of Anesthesia Discussed w Pt/Guardian: Yes - Procedure Procedure Start Date: 02/04/21 Procedure Start Time: 11:[address]: Reports: Blood Pressure, Heart Rate, SPO2 Functional IV: Yes Safety Measures: Reports: Patient Identified, Procedure Verified, Site Verified, Procedure Time Out Patient Position: Reports: Sitting Prep: Reports: Betadine x3, Sterile Drape Local Anesthetic: Reports: Intradermal Wheal w Lidocaine 1% Regional Placement Level: Reports: L3-4 Needle: Reports: 17 g Touhy Approach: Reports: Midline Technique: Reports: LETY Plastic Syringe Parasthesia: Reports: None Fluid Obtained: Reports: None Test Dose Time: 11:40 Test Dose Medication: Reports: Lidocaine 1.5% w Epinephrine 1:200,000 Test Dose Response: Reports: Negative Loading Dose Time: 11:40 Loading Dose Medication: bupivicaine 0.25% 10cc Loading Dose Patient Position: sitting Continuous Infusion Start Time: 11:45 Continuous Infusion Medication: ropivicaine 0.2% Continuous Infusion Rate: 16 Continuous Infusion PCS Bolus Option: 5 Continuous Infusion Lockout Dose (cc/hr): 20 Patient Position Post Placement: Reports: Supline/TAYLOR VS and FHR Monitored in Unit Post Placement: Yes Procedure End Date: 02/04/21 Procedure End Time: 12:33
[2021-02-04] MEDS ORDERED: Ampicillin 1 GM in Sodium Chloride 0.9% 50 ML IV SCH (15:30)
[2021-02-04] MEDS ORDERED: Benzocaine/Menthol 20%-0.5% Spray 78 GM Cannister TOP PRN (16:36)
[2021-02-04] MEDS ORDERED: Lanolin 100% Cream 7 GM Tube TOP PRN (16:36)
[2021-02-04] MEDS ORDERED: Witch Hazel Medicated Pads 40/Jar TOP PRN (16:36)
[2021-02-04] MEDS ORDERED: Docusate Sodium 100 MG Cap PO PRN (16:36)
[2021-02-04] MEDS ORDERED: oxyCODONE 5 MG Tab PO PRN (16:36)
[2021-02-04] MEDS ORDERED: Bisacodyl 10 MG Supp RECTAL PRN (16:36)
[2021-02-04] MEDS ORDERED: Acetaminophen 500 MG Tab PO PRN ×2 (16:36)
[2021-02-04] MEDS ORDERED: Ibuprofen 400 MG Tab PO PRN (16:36)
--- NOTE | 2021-02-04 17:54 | OR ---
SURGEON: Lew Castellon MD DATE OF PROCEDURE: 02/04/2021 INDICATION FOR PROCEDURE: A 25-year-old G3, P2-0-0-2 at 40 weeks and 4 days, presenting for elective induction of labor. The was complicated by limited care. She did not seek care until 37 weeks of . She had an ultrasound completed at that time, which was used for her estimated due date. She was positive for chlamydia and was treated along with her partner. She is GBS positive. The patient was 3 cm on admission. The patient was started on pitocin for induction of labor. She received ampicillin for GBS prophylaxis. She began to have strong contractions and received an epidural with good pain relief. She then quickly progressed to 9/90/0. heart rate was category 1. AROM was performed with clear fluid. She then quickly progressed to fully dilated with the urge to push. PREOPERATIVE DIAGNOSES: 1. [place] intrauterine at 40 weeks and 4 days. 2. Limited care. POSTOPERATIVE DIAGNOSES: 1. [place] intrauterine at 40 weeks and 4 days. 2. Limited care. PROCEDURE PERFORMED: Normal spontaneous vaginal delivery. ANESTHESIA: Epidural. ANESTHESIOLOGIST: Juan Workman MD FINDINGS: Viable male infant, score of 8 and 9. weight of 3400g. A nuchal cord and body cord were noted. ESTIMATED BLOOD LOSS: 200 mL. DESCRIPTION OF PROCEDURE: The patient pushed with contractions for approximately 10 minutes with good descent. head delivered in occiput anterior position over intact perineum, restituted ROT. Anterior shoulder delivered easily followed by posterior shoulder and remaining body. She had a tight nuchal cord and a body cord that was reduced after delivery. The baby was placed on maternal chest and evaluated by awaiting nursery staff. Baby was pink, crying vigorously, moving all extremities immediately after delivery. Umbilical cord was clamped and cut after 60 seconds and no longer pulsating. Cord gases were obtained. The placenta was removed with gentle traction on the umbilical cord. It was examined to be intact with 3-vessel cord. The vagina and perineum were examined and no lacerations were noted. Fundal massage was performed and the fundus was firm and at the umbilicus and the bleeding was light. The patient tolerated the procedure well and was given care instructions. ART / KESHA /[id number] MTDD
[2021-02-04] MEDS: Ibuprofen 800 MG Tab PO PRN (20:50)
[2021-02-05] MEDS: Ibuprofen 800 MG Tab PO PRN ×2 (06:14→15:40)
--- NOTE | 2021-02-05 12:16 | PCM.PNPP ---
- General Info Date of Service: 02/05/21 Functional Status: Reports: Pain Controlled, Tolerating Diet, Ambulating, Urinating - Review of Systems General: Reports: No Symptoms HEENT: Reports: No Symptoms Pulmonary: Reports: No Symptoms Cardiovascular: Reports: No Symptoms Gastrointestinal: Reports: No Symptoms Genitourinary: Reports: No Symptoms Musculoskeletal: Reports: No Symptoms Skin: Reports: No Symptoms Neurological: Reports: No Symptoms Psychiatric: Reports: No Symptoms - Patient Data Vital Signs - Most Recent: Last Vital Signs Temp 36.7 C 02/05/21 08:00 Pulse 70 02/05/21 08:00 Resp 18 02/05/21 08:00 BP 103/64 02/05/21 08:00 Pulse Ox 97 02/05/21 08:00 Weight - Most Recent: 177 lb Lab Results - Last 24 Hours: Laboratory Results - last 24 hr 02/04/21 02/04/21 02/05/21 Range/Units 16:23 16:23 06:38 Hgb 10.3 L (12.0-16.0) g/dL Hct 31.5 L (36.0-46.0) % Cord ABG pH 7.245 (7.18-7.38) Cord ABG Base Excess -4 (-10--2) Cord VBG pH 7.316 (7.25-7.45) Cord VBG Base Excess -4 (-10--2) Med Orders - Current: Current Medications Acetaminophen (Acetaminophen 500 Mg Tab) 500 mg PO Q4H PRN PRN Reason: Pain (mild 1-3) Acetaminophen (Acetaminophen 500 Mg Tab) 1,000 mg PO Q4H PRN PRN Reason: Pain (mild 1-3) Last Admin: 02/04/21 23:56 Dose: 1,000 mg Documented by: Benzocaine/Menthol (Benzocaine/Menthol 20%-0.5% [place] 78 Gm Cannister) 78 gm TOP ASDIRECTED PRN PRN Reason: Perineal Comfort Measure Last Admin: 02/04/21 20:52 Dose: 78 gm Documented by: Bisacodyl (Bisacodyl 10 Mg Supp) 10 mg RECTAL ONETIME PRN PRN Reason: Constipation Butorphanol Tartrate (Butorphanol 1 Mg/Ml Sdv) 1 mg IVPUSH Q1H PRN PRN Reason: Pain (severe 7-10) Carboprost Tromethamine (Carboprost Tromethamine 250 Mcg/1 Ml Amp) 250 mcg IM ASDIRECTED PRN PRN Reason: Post Hemorrhage Docusate Sodium (Docusate Sodium 100 Mg Cap) 100 mg PO Q12H PRN PRN Reason: Constipation Emollient Ointment (Lanolin 100% Cream 7 Gm Tube) 0 gm TOP ASDIRECTED PRN PRN Reason: Sore Nipples Oxytocin/Sodium Chloride (Oxytocin 30 Unit/500 Ml-Ns) 30 unit in 500 mls @ 2 mls/hr IV TITRATE [facility]; Protocol Last Titration: 02/04/21 13:05 Dose: 6 munits/min, 6 mls/hr Documented by: Lactated Ringer's (Ringers, Lactated) 1,000 mls @ 150 mls/hr IV ASDIRECTED [facility] Last Admin: 02/04/21 11:20 Dose: 150 mls/hr Documented by: Oxytocin/Sodium Chloride (Oxytocin 30 Unit/500 Ml-Ns) 30 unit in 500 mls @ 999 mls/hr IV TITRATE [facility] Tranexamic Acid 1,000 mg/ (Sodium Chloride) 110 mls @ 660 mls/hr IV ONETIME PRN PRN Reason: Bleeding Ampicillin Sodium 1 gm/ Sodium (Chloride) 50 mls @ 100 mls/hr IV Q4H [facility] Last Admin: 02/04/21 15:32 Dose: 100 mls/hr Documented by: Ibuprofen (Ibuprofen 400 Mg Tab) 400 mg PO Q4H PRN PRN Reason: Pain (mild 1-3) Ibuprofen (Ibuprofen 800 Mg Tab) 800 mg PO Q6H PRN PRN Reason: Pain (mild 1-3) Last Admin: 02/05/21 06:14 Dose: 800 mg Documented by: Lidocaine HCl (Lidocaine 1% 50 Ml Mdv) 50 ml INJECT ONETIME PRN PRN Reason: Laceration repair Methylergonovine Maleate (Methylergonovine 0.2 Mg/1 Ml Amp) 0.2 mg IM ASDIRECTED PRN PRN Reason: Post Hemorrhage Misoprostol (Misoprostol 25 Mcg (1/4 Of 100 Mcg) Tab) 25 mcg VAG ONETIME PRN PRN Reason: Cervical Ripening Misoprostol (Misoprostol 25 Mcg (1/4 Of 100 Mcg) Tab) 25 mcg VAG Q4H PRN PRN Reason: Cervical Ripening Misoprostol (Misoprostol 200 Mcg Tab) 200 mcg PO ONETIME PRN PRN Reason: Post Hemorrhage Nalbuphine HCl (Nalbuphine 10 Mg/1 Ml Vial) 10 mg IVPUSH Q1H PRN PRN Reason: Pain (severe 7-10) Ondansetron HCl (Ondansetron 4 Mg/2 Ml Sdv) 4 mg IVPUSH Q4H PRN PRN Reason: Nausea/Vomiting Oxycodone HCl (Oxycodone 5 Mg Tab) 5 mg PO Q2H PRN PRN Reason: Pain (severe 7-10) Sodium Chloride (Sodium Chloride 0.9% 10 Ml Syringe) 10 ml FLUSH ASDIRECTED PRN PRN Reason: Keep Vein Open Sodium Chloride (Sodium Chloride 0.9% 2.5 Ml Syringe) 2.5 ml FLUSH ASDIRECTED PRN PRN Reason: Keep Vein Open Sodium Chloride (Sodium Chloride 0.9% 10 Ml Sdv) 10 ml IV ASDIRECTED PRN PRN Reason: IV Use Sterile Water (Water For Irrigation,Sterile 1,000 Ml Container) 1,000 ml IRR ASDIRECTED PRN PRN Reason: delivery Terbutaline Sulfate (Terbutaline 1 Mg/Ml Sdv) 0.25 mg SUBCUT ASDIRECTED PRN PRN Reason: Tacysystole Witch Wilfrid (Witch Wilfrid Medicated Pads 40/Jar) 1 pad TOP ASDIRECTED PRN PRN Reason: comfort care Last Admin: 02/04/21 20:52 Dose: 1 pad Documented by: Discontinued Medications Bupivacaine HCl (Bupivacaine 0.25% 10 Ml Sdv) Confirm Administered Dose 10 ml .ROUTE .STK-MED ONE Stop: 02/04/21 11:32 Ampicillin Sodium 2 gm/ Sodium (Chloride) 100 mls @ 200 mls/hr IV ONETIME ONE Stop: 02/04/21 11:26 Last Admin: 02/04/21 11:38 Dose: 200 mls/hr Documented by: Ropivacaine (Naropin 0.2%) Confirm Administered Dose 200 mls @ as directed .ROUTE .STK-MED ONE Stop: 02/04/21 11:32 - Infant Interaction Disposition, : [place] at Bedside Infant Interaction: Holding Infant Infant Feeding: Bottle Fed Infant Support Person: Significant Other - Recovery Exam Fundal Tone: Firm Fundal Level: 1 Fingerbreadths Below Umbilicus Fundal Placement: Midline Lochia Amount: Scant Lochia Color: Rubra/Red Perineum Description: Intact, Minimal Bruising/Swelling Bladder Status: Voiding - Exam General: Alert, Oriented, Cooperative, No Acute Distress HEENT: Pupils Equal, Pupils Reactive, EOMI Neck: Supple, Trachea Midline, No JVD Lungs: Normal Respiratory Effort GI/Abdominal Exam: Soft, Non-Tender, No Distention Extremities: Normal Inspection, Normal Range of Motion, Non-Tender, No Pedal Edema Skin: Warm, Dry, Intact Wound/Incisions: Healing Well Neurological: No New Focal Deficit Psy/Mental Status: Alert, Normal Affect, Normal Mood - Problem List Review Problem List Initiated/Reviewed/Updated: Yes - My Orders Last 24 Hours: My Active Orders 02/04/21 Dinner Regular Diet [DIET] 02/04/21 16:36 Vital Signs [RC] PER UNIT ROUTINE Acetaminophen [Tylenol Extra Strength] 1,000 mg PO Q4H PRN Acetaminophen [Tylenol Extra Strength] 500 mg PO Q4H PRN Benzocaine/Menthol [Dermoplast Pain Relief 20%-0.5% [place]] 78 gm TOP ASDIRECTED PRN Docusate Sodium [Colace] 100 mg PO Q12H PRN Ibuprofen [Motrin] 400 mg PO Q4H PRN Ibuprofen [Motrin] 800 mg PO Q6H PRN Lanolin [Lansinoh HPA] See Dose Instructions TOP ASDIRECTED PRN bisacodyL [Dulcolax] 10 mg RECTAL ONETIME PRN oxyCODONE 5 mg PO Q2H PRN witch Wilfrid [Tucks] 1 pad TOP ASDIRECTED PRN Assess Lochia [WOMSER] Per Unit Routine Assess Uterine Involution [WOMSER] Per Unit Routine Breast Pump [WOMSER] Per Unit Routine Peripheral IV Discontinue [OM.PC] Routine 02/04/21 16:37 Cooling Warming Measures [RC] ASDIRECTED Ice Therapy [OM.PC] Per Unit Routine Perineal Care [OM.PC] Per Unit Routine Sitz Bath [OM.PC] Per Unit Routine 02/04/21 22:55 CHLAMYDIA AND GONORRHEA BY TMA Routine 02/05/21 12:12 Ready for Discharge [RC] PER UNIT ROUTINE - Assessment Assessment:: 25yo PPD1 s/p . Stable and recovering well. - Plan Plan:: - vitals stable - ambulating and tolerating PO - bleeding light, Hgb 10.3, denies s/s of anemia Stable for discharge home. Reviewed care instructions.
[2021-02-06 14:07] LABS: C.TRACHOMATIS BY TMA Negative (Negative); N.GONORRHOEAE BY TMA Negative (Negative)
== END 2021-02-05 22:00 | disposition home or self-care (01) | DRG 807 ==
LOC: MW.OBCHECK 10:25 → MW.OB 10:51 → MW.OBCHECK 10:51 → MW.OB 11:13 → OBSVTOIN 16:23 → MW.OB 20:25
PROVIDERS: ADMIT Obstetrics & Gynecology; ATTEND Obstetrics & Gynecology
PROC: 10E0XZZ Delivery of Products of Conception, External Approach (ICD-10-PCS; principal; 2021-02-04)
PROC: 10907ZC Drainage of Amniotic Fluid, Therapeutic from Products of Conception, Via Natural or Artificial Opening (ICD-10-PCS; 2021-02-04)
PROC: 3E033VJ Introduction of Other Hormone into Peripheral Vein, Percutaneous Approach (ICD-10-PCS; 2021-02-04)
PROC: 3E0R3BZ Introduction of Anesthetic Agent into Spinal Canal, Percutaneous Approach (ICD-10-PCS; 2021-02-04)
DX: O48.0 Post-term pregnancy (principal); Z37.0 Single live birth; O99.824 Streptococcus B carrier state complicating childbirth; Z20.822 Contact with and (suspected) exposure to COVID-19; Z3A.40 40 weeks gestation of pregnancy
CPT/HCPCS: 36415; 59025; 59409; 82803; 85014; 85018; 85027; 86592; 86850; 86900; 86901; 87491; 87591; A9270-GY; J0290; J2590; J2795; J3490; J7120; U0002

== ENCOUNTER 2022-03-23 11:26 | Emergency (ER) | payer SELFPAY ==
[2022-03-23] MEDS ORDERED: diphenhydrAMINE 50 MG/ML SDV IM ONE (12:09)
[2022-03-23] MEDS ORDERED: LORazepam 2 MG/ML SDV IM ONE ×2 (12:09→12:35)
[2022-03-23] MEDS ORDERED: Haloperidol Lactate 5 MG/ML SDV IM ONE ×2 (12:14→12:36)
[2022-03-23] MEDS ORDERED: LORazepam 1 MG Tab PO ONE (13:17)
[2022-03-23] MEDS ORDERED: Haloperidol 1 MG Tab PO ONE (13:17)
[2022-03-23 13:38] LABS: BLOOD UREA NITROGEN,BUN 6 mg/dL (7.0-18.0); CARBON DIOXIDE,CO2 20.8 mmol/L (21.0-32.0); CHLORIDE,CL 98 mmol/L (98-107); ESTIMATED GFR 91 mL/min (>60); GLUCOSE RANDOM 143 mg/dL (74-106); POTASSIUM,K 2.9 mmol/L (3.5-5.1); SODIUM,NA 133 mmol/L (136-145)
[2022-03-23] MEDS ORDERED: Potassium Chloride 20 MEQ Tab.ER PO ONE (14:30)
[2022-03-23 14:48] LABS: ACETAMINOPHEN <2.0 ug/mL
== END 2022-03-23 22:10 | disposition home or self-care (01) ==
LOC: MW.ED 11:26
DX: O98.519 Other viral diseases complicating pregnancy, unspecified trimester (principal); U07.1 COVID-19; O99.340 Other mental disorders complicating pregnancy, unspecified trimester; F29 Unspecified psychosis not due to a substance or known physiological condition; O99.320 Drug use complicating pregnancy, unspecified trimester; F15.90 Other stimulant use, unspecified, uncomplicated; Z3A.00 Weeks of gestation of pregnancy not specified; Z20.822 Contact with and (suspected) exposure to COVID-19
CPT/HCPCS: 36415; 80053; 80143; 80179; 80305; 80307; 81001; 84443; 84702; 84703; 85025; 87086; 87088; 87186; 87635; 93005; 96372; 99285; A9270; J1200; J1630; J2060; U0002

== ENCOUNTER 2022-03-25 08:39 | Emergency (ER) | payer SELFPAY ==
[2022-03-25] MEDS ORDERED: Sodium Chloride 0.9% 1,000 ML IV ONE (09:20)
[2022-03-25 10:33] LABS: ACETAMINOPHEN <2.0 ug/mL; BLOOD UREA NITROGEN,BUN 6 mg/dL (7.0-18.0); CARBON DIOXIDE,CO2 26.3 mmol/L (21.0-32.0); CHLORIDE,CL 105 mmol/L (98-107); GLUCOSE RANDOM 78 mg/dL (74-106); POTASSIUM,K 3.1 mmol/L (3.5-5.1); SODIUM,NA 140 mmol/L (136-145)
[2022-03-25 10:34] LABS: ESTIMATED GFR 123 mL/min (>60)
== END 2022-03-25 22:23 | disposition home or self-care (01) ==
LOC: MW.ED 08:39
DX: F15.10 Other stimulant abuse, uncomplicated (principal)
CPT/HCPCS: 36415; 80053; 80143; 80179; 80305; 80307; 84443; 85025; 93005; 96360; 99284; J7030

== ENCOUNTER 2022-03-28 12:54 | Emergency (ER) | payer SELFPAY | END 2022-03-28 13:27 | disposition home or self-care (01) | LOC: MW.ED 12:54 | DX: Z02.89 Encounter for other administrative examinations (principal); Z86.16 Personal history of COVID-19 | CPT/HCPCS: 99283 ==

== ENCOUNTER 2022-11-27 16:22 | Inpatient (IN) | payer MEDICAID ==
[2022-11-27] MEDS ORDERED: Misoprostol 200 MCG Tab PO PRN (16:44)
[2022-11-27] MEDS ORDERED: Tranexamic Acid 1,000 MG in Sodium Chloride 0.9% 100 ML IV PRN (16:44)
[2022-11-27] MEDS ORDERED: Ampicillin 2 GM in Sodium Chloride 0.9% 100 ML IV ONE (16:44)
[2022-11-27] MEDS ORDERED: Lidocaine 1% 50 ML MDV INJECT PRN (16:44)
[2022-11-27] MEDS ORDERED: Water For Irrigation,Sterile 1,000 ML Container IRR PRN (16:44)
[2022-11-27] MEDS ORDERED: Sodium Chloride 0.9% 10 ML Syringe FLUSH PRN (16:44)
[2022-11-27] MEDS ORDERED: Sodium Chloride 0.9% 20 ML SDV IV PRN (16:44)
[2022-11-27] MEDS ORDERED: Carboprost Tromethamine 250 MCG/1 mL Vial IM PRN (16:44)
[2022-11-27] MEDS ORDERED: Sodium Chloride 0.9% 2.5 ML Syringe FLUSH PRN (16:44)
[2022-11-27] MEDS ORDERED: Butorphanol 1 MG/ML SDV IVPUSH PRN (16:44)
[2022-11-27] MEDS ORDERED: Methylergonovine 0.2 MG/1 ML Amp IM PRN (16:44)
[2022-11-27] MEDS ORDERED: Oxytocin/0.9 % Sodium Chloride 30 UNIT/500 ML BAG IV SCH (16:45)
[2022-11-27] MEDS ORDERED: Sodium Chloride 0.9% 100 ML ONE (16:47)
[2022-11-27] MEDS ORDERED: Ampicillin 2 GM Vial ONE (16:47)
[2022-11-27] MEDS: Lactated Ringers 1,000 ML IV SCH ×3 (16:52→19:02)
[2022-11-27 17:23] LABS: HEMATOCRIT 31.8 % (36.0-46.0); HEMOGLOBIN 10.1 g/dL (12.0-16.0); MEAN CORPUSCULAR HEMOGLOBIN 27.4 pg (27.0-32.0); MEAN CORPUSCULAR HGB CONC 31.8 g/dL (31.0-37.0); MEAN CORPUSCULAR VOLUME 86.2 fL (80.0-98.0); PLATELET COUNT,PLT 230 K/uL (150-400); RED BLOOD CELL COUNT 3.69 M/uL (4.30-5.90); WHITE BLOOD CELL COUNT,WBC 15.15 K/uL (4.0-11.0)
[2022-11-27 17:31] LABS: AMPHETAMINES SCREEN, URINE NEGATIVE (CUTOFF=500); METHAMPHETAMINES SCREEN, URINE NEGATIVE (CUTOFF=500)
[2022-11-27 17:32] LABS: BARBITURATE SCREEN,URINE NEGATIVE (CUTOFF=200); BENZODIAZEPINES SCREEN,URINE NEGATIVE (CUTOFF=150); BUPRENORPHINE SCREEN,URINE NEGATIVE (CUTOFF=10); METHADONE SCREEN, URINE NEGATIVE (CUTOFF=200); OXYCODONE SCREEN,URINE NEGATIVE (CUT0FF=100); PCP SCREEN,URINE NEGATIVE (CUTOFF=25); PROPOXYPHENE SCREEN,URINE NEGATIVE (CUTOFF=300); THC SCREEN,URINE 20 NG/ML PRESUMPTIVE POSITIVE (CUTOFF=50)
[2022-11-27] MEDS ORDERED: ePHEDrine 50 MG/ML SDV IVPUSH PRN ×2 (17:52)
[2022-11-27] MEDS ORDERED: Phenylephrine HCl 0.5 MG/5 ML AMP IVPUSH PRN (17:52)
[2022-11-27] MEDS ORDERED: Ropivacaine HCl/PF 400 MG in Premix Bag 1 BAG EPIDUR SCH (18:00)
[2022-11-27] MEDS ORDERED: Dexmedetomidine 200 MCG/2 ML SDV ONE (18:27)
[2022-11-27] MEDS ORDERED: Ampicillin 1 GM Vial IV SCH (20:30)
[2022-11-27] MEDS ORDERED: Ampicillin 1 GM in Sodium Chloride 0.9% 50 ML IV SCH (21:00)
[2022-11-27] MEDS ORDERED: Ibuprofen 400 MG Tab PO PRN (22:17)
[2022-11-27] MEDS ORDERED: Acetaminophen 500 MG Tab PO PRN ×2 (22:17)
[2022-11-27] MEDS ORDERED: Docusate Sodium 100 MG Cap PO PRN (22:17)
[2022-11-27] MEDS ORDERED: Witch Hazel Medicated Pads 40/Jar TOP PRN (22:17)
[2022-11-27] MEDS ORDERED: Lanolin 100% Cream 7 GM Tube TOP PRN (22:17)
[2022-11-27] MEDS ORDERED: Bisacodyl 10 MG Supp RECTAL PRN (22:17)
[2022-11-27] MEDS ORDERED: Benzocaine/Menthol 20%-0.5% Spray 78 GM Cannister TOP PRN (22:17)
[2022-11-27 22:53] LABS: PH,UMBILICAL ARTERIAL 7.208 (7.18-7.38); PH,UMBILICAL VENOUS 7.203 (7.25-7.45)
[2022-11-28] MEDS: Ibuprofen 800 MG Tab PO PRN ×2 (02:08→12:40)
[2022-11-28 07:07] LABS: HEMOGLOBIN 8.9 g/dL (12.0-16.0)
== END 2022-11-29 18:05 | disposition home or self-care (01) | DRG 805 ==
LOC: MW.OBCHECK 16:22 → MW.OB 16:23 → MW.OBCHECK 16:43 → MW.OB 16:44 → OBSVTOIN 22:00 → MW.OB 11-28 00:57
PROVIDERS: ADMIT Obstetrics & Gynecology; ATTEND Obstetrics & Gynecology
PROC: 10E0XZZ Delivery of Products of Conception, External Approach (ICD-10-PCS; principal; 2022-11-27)
PROC: 10907ZC Drainage of Amniotic Fluid, Therapeutic from Products of Conception, Via Natural or Artificial Opening (ICD-10-PCS; 2022-11-27)
PROC: 3E0R3BZ Introduction of Anesthetic Agent into Spinal Canal, Percutaneous Approach (ICD-10-PCS; 2022-11-27)
PROC: 00HU33Z Insertion of Infusion Device into Spinal Canal, Percutaneous Approach (ICD-10-PCS; 2022-11-27)
DX: O40.3XX0 Polyhydramnios, third trimester, not applicable or unspecified (principal); O45.93 Premature separation of placenta, unspecified, third trimester; Z37.0 Single live birth; O98.52 Other viral diseases complicating childbirth; O99.324 Drug use complicating childbirth; O99.824 Streptococcus B carrier state complicating childbirth; F12.10 Cannabis abuse, uncomplicated; B00.9 Herpesviral infection, unspecified; O99.02 Anemia complicating childbirth; O99.344 Other mental disorders complicating childbirth; F32.A Depression, unspecified; D64.9 Anemia, unspecified; Z3A.39 39 weeks gestation of pregnancy
CPT/HCPCS: 01967; 36415; 51702; 80305-QW; 82803; 85014; 85018; 85027; 86592; 86850; 86900; 86901; A9270-GY; G0480; J0290; J3490; J7120

== ENCOUNTER 2022-12-14 04:53 | Emergency (ER) | payer MEDICAID | END 2022-12-14 08:19 | disposition home or self-care (01) | LOC: MW.ED 04:53 | DX: O99.893 Other specified diseases and conditions complicating puerperium (principal); R44.0 Auditory hallucinations; Z86.16 Personal history of COVID-19 | CPT/HCPCS: 99282; 99284 ==